=== PATIENT | male | born 1975 | race African-American/Black ===

== ENCOUNTER 2020-06-02 15:48 | Observation (INO) ==
[2020-06-02 17:05] LABS: Basophils % 0.5 % (0.0-0.8); Eosinophils # 0.3 10*3/uL (0.0-0.87); Eosinophils % 3.8 % (0.00-10.9); Hematocrit 48.1 VOL% (42.0-52.0); Hemoglobin 16.9 GM/DL (14.0-18.0); Immature Granulocytes % 0.3 %; Immature Granulocytes Absolute 0.02 #; Lymphocytes # 2.2 10*3/uL (1.4-4.0); Lymphocytes % 29.3 % (21.2-54.2); Mean Corpuscular HGB Conc 35.1 GM/DL (32-36); Mean Corpuscular Volume 85.6 FL (87-102); Mean Platelet Volume 11.5 FL (9.6-12.0); Monocytes % 8.4 % (1.7-12.7); Neutrophils % 57.7 % (38.7-73.9); Platelet Count 207 T/CUMM (130-400); Red Blood Count 5.62 MC/CUMM (3.8-5.5); Red Cell Distribution Width 13.1 % (9.3-17.3); White Blood Count 7.4 T/CUMM (4-12)
[2020-06-02] MEDS ORDERED: ASPIRIN CHEW 81 MG TABLET PO STA (17:16)
[2020-06-02 17:17] LABS: Calcium 9.2 MG/DL (8.5-10.1); Osmolality,Calculated 282.1 MOS/KG (273-304)
[2020-06-02] MEDS ORDERED: hydrALAZINE 20 MG/1 ML VIAL ONE (18:00)
[2020-06-02] MEDS ORDERED: hydrALAZINE 20 MG/1 ML VIAL IV STA (18:00)
[2020-06-02] MEDS ORDERED: POTASSIUM CHLORIDE 20 MEQ TABLET PO PRN (18:14)
[2020-06-02] MEDS ORDERED: DEXTROSE 50% 25 GM/50 ML VIAL IV PRN (18:14)
[2020-06-02] MEDS ORDERED: GLUCAGON 1 MG VIAL IM PRN (18:14)
[2020-06-02] MEDS ORDERED: MAGNESIUM SULF RIDER 2 GM in PREMIX 1 EACH IV PRN (18:14)
[2020-06-02] MEDS ORDERED: ALUM/MAG/SIMETH/LIDO VISC 1:1 30 ML BOTTLE PO PRN (18:14)
[2020-06-02] MEDS ORDERED: NITROGLYCERIN SL 0.4 MG TABLET SL PRN (18:14)
[2020-06-02] MEDS ORDERED: ACETAMINOPHEN 325 MG TABLET PO PRN (18:14)
[2020-06-02] MEDS ORDERED: LABETALOL 20 MG/4 ML SYRINGE IV STA (19:40)
[2020-06-02] MEDS ORDERED: INSULIN LISPRO 100 UNIT/ML SUBCUT STA (19:42)
[2020-06-02] MEDS: FAMOTIDINE 20 MG TABLET PO SCH (21:28)
[2020-06-02] MEDS: INSULIN LISPRO 100 UNIT/ML SUBCUT SCH (21:32)
[2020-06-03 06:24] LABS: Risk Ratio 6.35; VLDL CHOLESTEROL 75.2 MG/DL
[2020-06-03] MEDS ORDERED: PANTOPRAZOLE 40 MG TABLET PO SCH (09:00)
[2020-06-03] MEDS ORDERED: lisinopriL 5 MG TABLET PO SCH (09:00)
[2020-06-03] MEDS ORDERED: ASPIRIN EC 325 MG TABLET PO SCH (09:00)
[2020-06-03] MEDS ORDERED: ENOXAPARIN 40 MG/0.4 ML SYRINGE SUBCUT SCH (09:00)
[2020-06-03] MEDS: FAMOTIDINE 20 MG TABLET PO SCH (09:05)
[2020-06-03] MEDS: INSULIN LISPRO 100 UNIT/ML SUBCUT SCH ×3 (09:06→16:01)
[2020-06-03] MEDS ORDERED: carvediloL 6.25 MG TABLET PO SCH (13:00)
[2020-06-03 14:04] LABS: Troponin I < 0.015 NG/ML (0.00-0.045)
[2020-06-03 15:40] VITALS: BP 141/94
[2020-06-04] MEDS ORDERED: lisinopriL 10 MG TABLET PO SCH (09:00)
== END 2020-06-03 16:15 | disposition home or self-care (01) ==
LOC: N.ED 15:48 → N.EDINP 15:48 → N.TELEN 20:10
PROVIDERS: ADMIT Emergency Medicine; ATTEND Emergency Medicine

== ENCOUNTER 2021-07-12 22:50 | Inpatient (IN) ==
[2021-07-12] MEDS ORDERED: ASPIRIN 325 MG TABLET PO STA (23:08)
[2021-07-12] MEDS ORDERED: MORPHINE 2 MG/1 ML SYRINGE IV STA (23:08)
[2021-07-12] MEDS ORDERED: ONDANSETRON 4 MG/2 ML VIAL IV STA (23:08)
[2021-07-12] MEDS ORDERED: NITROGLYCERIN 2% OINT 1 INCH/GM PACK TOP STA (23:08)
[2021-07-12] MEDS ORDERED: MORPHINE 4 MG/1 ML VIAL ONE (23:34)
[2021-07-12 23:46] LABS: Basophils # 0.1 10*3/uL (0.0-0.2); Basophils % 0.5 % (0.0-0.8); Eosinophils # 0.7 10*3/uL (0.0-0.87); Hematocrit 45.8 VOL% (42.0-52.0); Hemoglobin 16.1 GM/DL (14.0-18.0); Immature Granulocytes % 0.3 %; Immature Granulocytes Absolute 0.03 #; Lymphocytes # 3.7 10*3/uL (1.4-4.0); Lymphocytes % 38.6 % (21.2-54.2); Mean Corpuscular HGB Conc 35.2 GM/DL (32-36); Mean Corpuscular Volume 85.1 FL (87-102); Mean Platelet Volume 11.6 FL (9.6-12.0); Monocytes % 8.9 % (1.7-12.7); Neutrophils % 44.7 % (38.7-73.9); Platelet Count 219 T/CUMM (130-400); Red Blood Count 5.38 MC/CUMM (3.8-5.5); Red Cell Distribution Width 13.2 % (9.3-17.3); White Blood Count 9.5 T/CUMM (4-12)
[2021-07-12 23:59] LABS: Albumin 3.7 G/DL (3.4-5.0); Bilirubin,Total 0.7 MG/DL (0.20-1.00); Calcium 9.1 MG/DL (8.5-10.1); Osmolality,Calculated 274.2 MOS/KG (273-304); Potassium 3.9 MMOL/L (3.5-5.1); Total Protein 7.7 G/DL (6.4-8.2)
[2021-07-13] MEDS ORDERED: LORazepam 2 MG/1 ML VIAL IV STA (01:05)
[2021-07-13] MEDS ORDERED: LORazepam 2 MG/1 ML VIAL ONE (01:06)
[2021-07-13] MEDS ORDERED: ACETAMINOPHEN 325 MG TABLET PO PRN (03:20)
[2021-07-13] MEDS ORDERED: hydrALAZINE 20 MG/1 ML VIAL IV PRN (03:20)
[2021-07-13] MEDS ORDERED: GLUCAGON 1 MG VIAL IM PRN (03:20)
[2021-07-13] MEDS ORDERED: DEXTROSE 10% 250 ML BAG IV PRN (03:31)
[2021-07-13 04:27] LABS: Basophils # 0.1 10*3/uL (0.0-0.2); Basophils % 0.6 % (0.0-0.8); Eosinophils # 0.7 10*3/uL (0.0-0.87); Eosinophils % 6.5 % (0.00-10.9); Hematocrit 45.6 VOL% (42.0-52.0); Hemoglobin 15.6 GM/DL (14.0-18.0); Immature Granulocytes % 0.4 %; Immature Granulocytes Absolute 0.04 #; Lymphocytes # 2.2 10*3/uL (1.4-4.0); Lymphocytes % 21.8 % (21.2-54.2); Mean Corpuscular HGB Conc 34.2 GM/DL (32-36); Mean Platelet Volume 11.1 FL (9.6-12.0); Monocytes % 7.9 % (1.7-12.7); Neutrophils % 62.8 % (38.7-73.9); Platelet Count 197 T/CUMM (130-400); Red Cell Distribution Width 13.2 % (9.3-17.3); White Blood Count 10.1 T/CUMM (4-12)
[2021-07-13 04:56] LABS: Albumin 3.8 G/DL (3.4-5.0); Bilirubin,Total 0.7 MG/DL (0.20-1.00); Calcium 9.3 MG/DL (8.5-10.1); Osmolality,Calculated 274.7 MOS/KG (273-304); Risk Ratio 7.52; Total Protein 7.4 G/DL (6.4-8.2); VLDL Cholesterol 103.2 MG/DL
[2021-07-13] MEDS: SODIUM CHLORIDE 0.9% 1,000 ML IV SCH ×3 (05:55→18:50)
[2021-07-13] MEDS: ENOXAPARIN 40 MG/0.4 ML SYRINGE SUBCUT SCH (05:56)
[2021-07-13 07:31] LABS: Bilirubin,Urine Negative (Negative); Blood, Urine Small mg/dL (Negative); Glucose,Urine (UA) >=500 mg/dL (Negative); Ketones,Urine 20 mg/dL (Negative); Nitrite,Urine Negative (Negative); Protein,Urine Negative; RBC,Urine 1 /HPF (0-4); Urine Appearance CLEAR (Clear); Urine Color Yellow (Yellow); Urine Specific Gravity 1.031 (1.001-1.035); Urine Urobilinogen < 2.0 EU/DL (<2.0)
[2021-07-13] MEDS: INSULIN REGULAR 100 UNIT/ML SUBCUT SCH ×4 (08:18→22:16)
[2021-07-13] MEDS: PANTOPRAZOLE 40 MG VIAL IV SCH (11:02)
[2021-07-13] MEDS: DOCUSATE SODIUM 100 MG CAPSULE PO SCH ×2 (11:02→22:16)
[2021-07-13] MEDS: HYDROmorphone 2 MG/1 ML VIAL IV PRN ×2 (12:34→22:16)
[2021-07-13] MEDS: ONDANSETRON 4 MG/2 ML VIAL IV PRN ×2 (12:34→22:16)
[2021-07-13] MEDS: lisinopriL 10 MG TABLET PO SCH (14:47)
[2021-07-13] MEDS ORDERED: ATORVASTATIN 40 MG TABLET PO SCH (21:00)
[2021-07-13] MEDS: carvediloL 6.25 MG TABLET PO SCH (22:16)
[2021-07-14] MEDS: SODIUM CHLORIDE 0.9% 1,000 ML IV SCH (03:47)
[2021-07-14] MEDS: ONDANSETRON 4 MG/2 ML VIAL IV PRN (04:03)
[2021-07-14 05:24] LABS: Basophils # 0.1 10*3/uL (0.0-0.2); Basophils % 0.5 % (0.0-0.8); Eosinophils # 0.7 10*3/uL (0.0-0.87); Eosinophils % 7.1 % (0.00-10.9); Hematocrit 46.3 VOL% (42.0-52.0); Hemoglobin 15.8 GM/DL (14.0-18.0); Immature Granulocytes % 0.3 %; Immature Granulocytes Absolute 0.03 #; Lymphocytes # 2.4 10*3/uL (1.4-4.0); Mean Corpuscular HGB Conc 34.1 GM/DL (32-36); Mean Corpuscular Volume 87.2 FL (87-102); Mean Platelet Volume 11.3 FL (9.6-12.0); Neutrophils % 58.1 % (38.7-73.9); Platelet Count 234 T/CUMM (130-400); Red Blood Count 5.31 MC/CUMM (3.8-5.5); Red Cell Distribution Width 13.3 % (9.3-17.3); White Blood Count 9.2 T/CUMM (4-12)
[2021-07-14] MEDS: ENOXAPARIN 40 MG/0.4 ML SYRINGE SUBCUT SCH (05:24)
[2021-07-14 05:44] LABS: Albumin 3.7 G/DL (3.4-5.0); Bilirubin,Total 1.3 MG/DL (0.20-1.00); Calcium 8.6 MG/DL (8.5-10.1); Osmolality,Calculated 268.5 MOS/KG (273-304); Potassium 3.8 MMOL/L (3.5-5.1); Total Protein 8.1 G/DL (6.4-8.2)
[2021-07-14 07:51] VITALS: BP 146/87
[2021-07-14] MEDS: lisinopriL 10 MG TABLET PO SCH (08:59)
[2021-07-14] MEDS: DOCUSATE SODIUM 100 MG CAPSULE PO SCH (08:59)
[2021-07-14] MEDS: INSULIN REGULAR 100 UNIT/ML SUBCUT SCH (08:59)
[2021-07-14] MEDS: carvediloL 6.25 MG TABLET PO SCH (08:59)
[2021-07-14] MEDS: PANTOPRAZOLE 40 MG VIAL IV SCH (09:01)
== END 2021-07-14 10:02 | disposition home or self-care (01) | DRG 440 ==
LOC: N.ED 22:50 → N.EDINP 07-13 03:20 → N.5E 07-13 13:00
PROVIDERS: ADMIT Internal Medicine; ATTEND Internal Medicine